=== PATIENT | male | born 1960 | race Caucasian/White ===

== ENCOUNTER 2018-01-12 14:55 | Emergency (ER) | payer OTHER ==
[~2018-01-12] VITALS: Ht 172.7 cm; Wt 71.2 kg
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
[2018-01-12 17:11] VITALS: BP 188/104
== END 2018-01-12 17:13 ==
LOC: ERH 14:55
DX: R42 Dizziness and giddiness (principal)
CPT/HCPCS: 80307; 93005; 93010